=== PATIENT | female | born 1960 | race Caucasian/White ===

== ENCOUNTER 2024-01-15 08:03 | Emergency (ER) | payer BC, OTHER ==
[2024-01-15 08:09] VITALS: BP 135/80; PULSE 92; RESP 18; TEMP 98.3; BMI 28.3
[2024-01-15] MEDS ORDERED: TETRACAINE 0.5% OPHTH SOLN 2 ML BOTTLE ONE (08:40)
[2024-01-15] MEDS ORDERED: FLUORESCEIN NA 1 EA STRIP ONE (08:40)
[2024-01-15] MEDS: FLUORESCEIN NA 1 EA STRIP OD ONE (08:48)
[2024-01-15] MEDS: TETRACAINE 0.5% HCL 0.6ML DROPPER.BOTTLE OD ONE (08:49)
[2024-01-15] MEDS ORDERED: SULFACETAMIDE SODIUM 10% OPHTHALMIC DROPS 15 ML BOTTLE OD ONE (09:50)
[2024-01-15] MEDS ORDERED: ERYTHROMYCIN 0.5% OPHTHALMIC OINTMENT 3.5 GM TUBE OS SCH (10:00)
== END 2024-01-15 10:50 | disposition home or self-care (01) ==
LOC: JER 08:03
DX: S05.01XA Injury of conjunctiva and corneal abrasion without foreign body, right eye, initial encounter (principal); X58.XXXA Exposure to other specified factors, initial encounter
CPT/HCPCS: 99283-25